=== PATIENT | male | born 1930 | race Caucasian/White ===

== ENCOUNTER 2017-12-02 18:56 | Inpatient (IN) | payer OTHER ==
[~2017-12-02] VITALS: Ht 177.8 cm; Wt 69.0 kg
--- NOTE | ~2017-12-02 | CON ---
[place], [place] REPORT OF CONSULTATION NAME: FRACISCO EPPERSON UNIT #: [id number] ROOM: 404 DOCTOR: SADIA TAMAYO MD BIRTHDATE: [birth year] DOS: 12/03/2017 REASON FOR CONSULTATION: Leg edema, atrial fibrillation. HISTORY OF PRESENT ILLNESS: The patient is an 87-year-old man who has no previous cardiac history available at [facility]. As best I can tell from the available records, the patient was diagnosed as having atrial fibrillation recently. At about the same time, he began having swelling in his legs with leakage from the skin of his legs. In addition, he developed leg weakness and trouble walking along with poor appetite. He was referred to Dr. Ballard at the [facility], but I do not believe that he has seen Dr. Ballard as of yet. He was anticoagulated by his primary physician and a workup was scheduled. He has, however, experienced multiple mechanical falls and family became concerned about his safety and welfare. They therefore brought him to the emergency room for assessment. In the emergency room, he was noted to be in atrial fibrillation with a controlled ventricular response. A chest x-ray showed normal cardiac silhouette without any pneumothorax, consolidation or vascular congestion; however, his examination did suggest congestive heart failure with neck vein distention, diminished breath sounds at the bases, and severe peripheral edema with oozing from the skin. In addition, the proBNP was elevated at 11,064. He was therefore admitted and placed on diuretics. Cardiology was asked to assess his status. The patient denies dyspnea now, but states that he is very weak. He states that he is losing his voice and has a hard time answering so many questions. PAST MEDICAL HISTORY: Includes 1. Recently documented atrial fibrillation. 2. Hyperlipidemia. 3. Inguinal hernia repair times 3. 4. Benign prostatic hypertrophy. 5. History of anemia with thrombocytopenia. REVIEW OF SYSTEMS: The patient denies diplopia or loss of vision. He has had several falls which he states are just from weakness. He denies nausea or vomiting. He denies fevers, chills or sweats. He is not sure if his weight has changed lately, but he believes he is losing weight. He denies palpitations or chest pain. He denies orthopnea or PND. He denies nausea, vomiting or hemoptysis. He denies hematemesis. He denies any blood in his urine or stools. He does note that his legs have been red and sore and that they are oozing water. They have been swollen for the last month or more. The remainder of the review of systems is negative except as noted above. MEDICATIONS: Prior to admission include apixaban 2.5 mg b.i.d., furosemide 40 mg daily, metoprolol 25 mg daily, potassium 20 mEq daily, pravastatin 40 mg at bedtime, and tamsulosin 0.4 mg daily. ALLERGIES: He has no known drug allergies. [place], [place] REPORT OF CONSULTATION NAME: FRACISCO EPPERSON UNIT #: [id number] ROOM: [facility] DOCTOR: SADIA TAMAYO MD BIRTHDATE: [birth year] FAMILY HISTORY: Positive for father dying of cancer and mother dying of old age. SOCIAL HISTORY: The patient lives with his who is also ill. He apparently does get some help from his daughter. He does not smoke, use illegal drugs or drink alcohol. PHYSICAL EXAMINATION: GENERAL: The patient is a slender, chronically ill-appearing elderly white male who is not in any acute distress. VITAL SIGNS: Pulse is 98 and irregularly irregular, blood pressure is 98/50. He has a temperature of 97.7. He weighs 69.0 kg and has a body mass index of 21.8. HEENT: Normocephalic and atraumatic. Extraocular muscles are intact. Sclerae are clear. Pupils are round and react to light. The oral mucosa is moist. Tongue is midline. NECK: Supple. He does have jugular venous distention about 5 cm above the jugular notch with hepatojugular reflux present. Carotid pulses are full and there is no carotid bruit present. He has no neck or supraclavicular masses and no thyromegaly. RESPIRATORY: Respirations are unlabored at rest. He does have diminished breath sounds at the bases, but no wheezes or rales. He has no presacral edema or chest wall tenderness. CARDIOVASCULAR: His heart has an irregularly irregular rhythm. He does have a loud third heart sound. The PMI is displaced into the anterior axillary line. No significant murmurs are present. ABDOMEN: Soft and normally active without masses, organomegaly or bruits. EXTREMITIES: Showed 3+ edema to above the knees. The skin is reddened and is oozing fluid. Peripheral pulses are not palpable bilaterally. Electrocardiogram is not available for review. LABORATORY DATA: Hemoglobin is 11.8 with hematocrit 37.7, white count 8900 and platelet count is diminished at 94,000. INR is 1.2. Sodium is 139, potassium 3.9, BUN 21, creatinine 1.19. Sugar is 84. Magnesium is slightly elevated at 2.3, total bilirubin is elevated at 1.7, AST is mildly elevated at 45. Alkaline phosphatase is slightly low. Troponin has been mildly elevated on multiple occasions in the range of 0.053-0.067. There is no characteristic rise and fall pattern in the troponin levels. TSH is mildly elevated at 6.3. The patient did have an echocardiogram today, which I have reviewed. It showed normal left ventricular internal dimensions with severe concentric left ventricular hypertrophy. The left ventricle has a ground glass pattern consistent with an infiltrative cardiomyopathy such as amyloidosis or possible hemochromatosis. Valve function appears to be preserved. Ejection fraction is 55%. Diastole could not be fully assessed, but appears to be impaired. There is marked biatrial enlargement present. A pleural effusion is also apparent even though it is not seen on the chest x-ray. [place], [place] REPORT OF CONSULTATION NAME: FRACISCO EPPERSON UNIT #: [id number] ROOM: 404 DOCTOR: SADIA TAMAYO MD BIRTHDATE: [birth year] IMPRESSION: 1. Chronic diastolic heart failure with acute exacerbation. 2. 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 3. Macrocytic anemia with thrombocytopenia. 4. Probable early cellulitis of the legs. PLAN: For now, the patient will be treated with diuretics. A cardiac MRI may be very helpful to determine the cause of his severe left ventricular hypertrophy. 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 Given his age, this would predict a very poor prognosis. We will follow the patient with his other physicians and we thank Dr. Rojas for asking our advice regarding his care. SADIA TAMAYO MD CM:CONSTR:REPORT OF CONSULTATION 50 12/03/172049 interface
--- NOTE | ~2017-12-02 | PR ---
[place], [place] PROGRESS NOTE NAME: FRACISCO EPPERSON [facility] #: [id number] UNIT #: [id number] ROOM: 404 DOCTOR: SADIA TAMAYO MD BIRTHDATE: [birth year] DOS: 12/05/2017 SUBJECTIVE: The patient was seen at his bedside today, 12/05/2017, for followup of his diastolic congestive heart failure. He is an 87-year-old man who was recently found to have atrial fibrillation. He was treated with beta blockers for rate control and Eliquis for stroke prophylaxis. Nonetheless, he developed significant fluid overload along with unsteady gait and falling. He was therefore brought to the hospital. An echocardiogram on admission shows severe concentric left ventricular hypertrophy with a ground glass appearance, consistent with cardiac amyloid. I have discussed his case with Radiology here at [facility]. Cardiac MRI is not done here. I have also discussed his case with an imaging medical office representative and a heart failure specialist. 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 There is no specific treatment for this, aside from rate control utilizing beta blockers and diuresis for heart failure. In general prognosis is poor. We could confirm the diagnosis of cardiac amyloid with an MRI, but that cannot be done at [facility]. In the long run, it may not make any difference in any case, since he would be treated the same way no matter what. PHYSICAL EXAMINATION: VITAL SIGNS: Today his pulse is 85 and irregularly irregular, blood pressure is 107/64. He is afebrile. NECK: Supple. He has jugular distention to the angle of the jaw when sitting in a 45 degree angle. Carotids are full. LUNGS: Respirations are unlabored. Chest is clear with decreased breath sounds at the bases, but no wheezes or rales. HEART: Has an irregularly irregular rhythm with a third heart sound. PMI is displaced laterally. ABDOMEN: Soft. EXTREMITIES: Wrapped with Unna boots bilaterally. LABORATORY DATA: Hemoglobin is 12.1, white count of 7500, platelet count 102,000. Sodium is 139, potassium 4.1, chloride 100, CO2 of 32, BUN 29, creatinine 1.59. IMPRESSION: 1. Chronic diastolic heart failure with acute exacerbation. 2. Recent documentation of atrial fibrillation. 3. 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 4. Early cellulitis of the legs. PLAN: As noted above, we will continue rate control with beta blockers and diuresis as tolerated by his kidneys. No specific therapy for cardiac amyloid is available at this time. Based on his age, poor clinical status and amyloidosis, I believe his long-term prognosis is very limited. I thank the hospitalist physicians for asking our advice regarding his care. [place], [place] PROGRESS NOTE NAME: FRACISCO EPPERSON Simone UNIT #: [id number] ROOM: 404 DOCTOR: SADIA TAMAYO MD BIRTHDATE: [birth year] SADIA TAMAYO MD CM:JAYE [id number] SADIA TAMAYO MD 12/05/17 172 interface
--- NOTE | ~2017-12-02 | PR ---
[place], [place] PROGRESS NOTE NAME: FRACISCO EPPERSON UNIT #: [id number] ROOM: 404 DOCTOR: BRYAN LLANES MD BIRTHDATE: [birth year] DOS: 12/06/2017 REASON FOR VISIT: CHF and atrial fibrillation. HISTORY OF PRESENT ILLNESS: The patient is feeling better, somewhat tired. Denies any chest pain or palpitation, no PND, no orthopnea, no nausea, vomiting. REVIEW OF SYSTEMS: Review of the 8 systems negative except as mentioned above. RHYTHM STRIPS: The patient was not on glass mechanic. PHYSICAL EXAMINATION: VITAL SIGNS: Blood pressure 116/83, pulse 100, respiration rate was 18, weight 69 kilos. GENERAL: Alert, comfortable, in no acute distress. HEENT: Pupils round, equal. No jaundice. NECK: Supple, no distended neck veins, no carotid bruit. CHEST: Symmetrical, nontender. LUNGS: Clear to auscultation bilaterally. HEART: Slightly irregular. Grade 1/6 systolic murmur. ABDOMEN: Benign, nontender. Bowel sounds normal. EXTREMITIES: Showed 1+ edema with mild cellulitis. SKIN: Warm and dry. NEUROLOGIC: The patient is alert, oriented. No focal neurologic deficit. RECTAL: Deferred. LABORATORY DATA: Labs reviewed. Hemoglobin 12.1, creatinine 1.4. IMPRESSION: 1. Acute and chronic diastolic heart failure, improving. 2. Paroxysmal atrial fibrillation. 3. Left ventricular hypertrophy. 4. Chronic kidney disease. 5. Cellulitis. RECOMMENDATIONS: 1. Continue current medications. 2. Continue his Eliquis anticoagulation for the paroxysmal atrial fibrillation. 3. Possible discharge today or tomorrow. 4. Continue to monitor his blood pressure and renal function. There is no family at bedside at the time of my examination. [place], [place] PROGRESS NOTE NAME: FRACISCO EPPERSON UNIT #: [id number] ROOM: 404 DOCTOR: BRYAN LLANES MD BIRTHDATE: [birth year] BRYAN LLANES MD CM:PNTRANS [id number] [phone] BRYAN LLANES MD 12/06/172199 interface
--- NOTE | ~2017-12-02 | PR ---
[place], [place] PROGRESS NOTE NAME[facility]PPERSON [facility] [id number] UNIT #: [id number] ROOM: 404 DOCTOR: SADIA TAMAYO MD BIRTHDATE: [birth year] DOS: 12/04/2017 SUBJECTIVE: The patient was seen at his bedside today on 12/04/2017 for followup of his atrial fibrillation and heart failure. I reviewed his echocardiogram last evening. It shows marked concentric left ventricular hypertrophy with a ground glass pattern. At the same time, even though his left ventricle is dramatically thickened. His QRS complexes on EKG are very small. This combination of factors is typically seen in an infiltrative cardiomyopathy and most likely indicates that the patient has amyloidosis. He denies any problems today and is anxious to go home. PHYSICAL EXAMINATION: VITAL SIGNS: His pulse is 90 and irregularly irregular, blood pressure is 137/82, he is afebrile. He weighs 69.0 kg and has a body mass index of 21.8. HEENT: Normocephalic and atraumatic. Extraocular muscles are intact. Sclerae are clear. Pupils equal, round and react to light. Oral mucosa is moist. Tongue is midline. NECK: Supple. He does have jugular distention to the angle of the jaw when sitting upright. Carotids are full. LUNGS: Respirations are unlabored. He has decreased breath sounds at the bases, but no wheezes or rales. He has no dullness or presacral edema. HEART: Has an irregularly irregular rhythm. He has a third heart sound. The PMI is displaced somewhat laterally. ABDOMEN: Benign. EXTREMITIES: Wrapped with Unna boots. LABORATORY DATA: Iron, TIBC and ferritin levels are normal essentially ruling out iron storage diseases. Clinically, it is most likely that the patient therefore has amyloidosis. IMPRESSION: 1. Chronic diastolic heart failure with acute exacerbation. 2. Atrial fibrillation, documented recently. 3. 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 4. Macrocytic anemia with thrombocytopenia. 5. Early cellulitis of the legs. I discussed the patient's care briefly with an imaging human capital analyst. We could probably confirm the diagnosis with an MRI. Other diagnostic studies such as biopsy would be much more invasive. On the other hand, I do not know that there is much we would have to offer him therapeutically even if we do confirm the diagnosis. I will discuss his case with our heart failure specialist, but I think that conservative care may be all we have to offer. For now, I would continue him on enough beta haven to control his rate and we will use diuretics as needed. I thank the hospitalist physicians for asking our advice regarding his care. [place], [place] PROGRESS NOTE NAME: FRACISCO EPPERSON UNIT #: [id number] ROOM: 404 DOCTOR: SADIA TAMAYO MD BIRTHDATE: [birth year] SADIA TAMAYO MD CM:PNTRANS [id number] SADIA TAMAYO MD 12/04/17 1215 interface
[2017-12-02 19:07] VITALS: BP 121/75
[2017-12-02] MEDS ORDERED: FUROSEMIDE40 MG PO (19:14)
[2017-12-02] MEDS ORDERED: ELIQUIS2.5 M1 PO (19:14)
[2017-12-02] MEDS ORDERED: METOPROLOL SUCC25 M2 PO (19:15)
[2017-12-02] MEDS ORDERED: POTASSIUM CHLO20 MEQ PO (19:16)
[2017-12-02] MEDS ORDERED: TAMSULOSIN HCL0.4 MG PO (19:19)
[2017-12-02] MEDS ORDERED: PRAVACHOL40 MG PO (19:19)
[2017-12-02 20:02] LABS: HEMATOCRIT 39.2 % (42.0-52.0); HEMOGLOBIN 12.1 g/dl (14.0-18.0); MEAN CELL VOLUME 96.6 fl (80.0-94.0); MEAN CORPUSCULAR HGB 29.8 pg (27.0-31.0); MEAN CORPUSCULAR HGB CONC 30.9 g/dl (33.0-37.0); PLATELET COUNT AUTOMATED 101 10*3/uL (130-400); RED BLOOD COUNT 4.06 10*6/uL (4.50-5.90); RED CELL DISTRI WIDTH 13.4 % (0-14.5); WHITE BLOOD COUNT 8.3 10*3/uL (4.8-10.8)
[2017-12-02 20:14] LABS: ACT PARTIAL THROMBO TIME 27.2 SECONDS (20.8-31.5); INTERNATIONAL NORM RATIO 1.2 (2.0-3.5)
[2017-12-02 20:19] LABS: ALBUMIN 3.4 gm/dl (3.1-4.5); ALKALINE PHOSPHATASE 42 U/L (45-117); BUN 21 mg/dl (7-24); CHLORIDE 99 mmol/L (98-107); CREATININE 1.15 mg/dL (0.70-1.30); POTASSIUM 4.2 mmol/L (3.5-5.1); SGOT/AST 51 IU/L (3-35); SGPT/ALT 36 U/L (12-78); SODIUM 139 mmol/L (136-145); TOTAL PROTEIN 7.5 gm/dL (6.4-8.2)
[2017-12-02 20:22] LABS: ATYPICAL LYMPHS 1 % (0-0); BASOPHILS 1 % (0-1); PLATELET SUFFICIENCY LOW (NORMAL); TOTAL CELLS COUNTED 100 #CELLS; TROPONIN I 0.057 ng/ml (<0.045)
[2017-12-02 21:57] VITALS: BP 106/77
[2017-12-03] VITALS: BP 104/65
[2017-12-03 04:26] LABS: HEMATOCRIT 37.7 % (42.0-52.0); HEMOGLOBIN 11.8 g/dl (14.0-18.0); MEAN CELL VOLUME 96.2 fl (80.0-94.0); MEAN CORPUSCULAR HGB 30.1 pg (27.0-31.0); MEAN CORPUSCULAR HGB CONC 31.3 g/dl (33.0-37.0); MEAN PLATELET VOLUME 13.2 fl (9.6-12.3); PLATELET COUNT AUTOMATED 94 10*3/uL (130-400); RED BLOOD COUNT 3.92 10*6/uL (4.50-5.90); RED CELL DISTRI WIDTH 13.3 % (0-14.5); WHITE BLOOD COUNT 8.9 10*3/uL (4.8-10.8)
[2017-12-03 04:37] LABS: ACT PARTIAL THROMBO TIME 27.9 SECONDS (20.8-31.5); INTERNATIONAL NORM RATIO 1.2 (2.0-3.5)
[2017-12-03 04:56] LABS: ALBUMIN 3.1 gm/dl (3.1-4.5); ALKALINE PHOSPHATASE 38 U/L (45-117); BUN 21 mg/dl (7-24); CHLORIDE 99 mmol/L (98-107); CHOLESTEROL 78 mg/dL (<200); CREATININE 1.19 mg/dL (0.70-1.30); HDL CHOLESTEROL 38 mg/dl (40-60); LDL CHOLESTEROL 25 mg/dL (9-159); PHOSPHOROUS 3.6 mg/dL (2.5-4.9); POTASSIUM 3.9 mmol/L (3.5-5.1); SGOT/AST 45 IU/L (3-35); SGPT/ALT 28 U/L (12-78); SODIUM 139 mmol/L (136-145); TOTAL PROTEIN 6.6 gm/dL (6.4-8.2); TRIGLYCERIDES 73 mg/dl (<150); VLDL CHOLESTEROL 15 mg/dL (6-40)
[2017-12-03 05:04] LABS: PLATELET SUFFICIENCY LOW (NORMAL); TOTAL CELLS COUNTED 100 #CELLS
[2017-12-03 08:00] VITALS: BP 131/92
[2017-12-03 09:48] LABS: VITAMIN D, 25-HYDROXY 14.1 ng/mL (30-100)
[2017-12-03 12:00] VITALS: BP 110/84
[2017-12-03 16:00] VITALS: BP 98/50
[2017-12-03 20:00] VITALS: BP 130/84
[2017-12-04] VITALS: BP 115/67
[2017-12-04 07:05] LABS: HEMATOCRIT 39.3 % (42.0-52.0); HEMOGLOBIN 12.1 g/dl (14.0-18.0); MEAN CELL VOLUME 95.9 fl (80.0-94.0); MEAN CORPUSCULAR HGB 29.5 pg (27.0-31.0); MEAN CORPUSCULAR HGB CONC 30.8 g/dl (33.0-37.0); MEAN PLATELET VOLUME 13.6 fl (9.6-12.3); PLATELET COUNT AUTOMATED 102 10*3/uL (130-400); RED CELL DISTRI WIDTH 13.2 % (0-14.5); WHITE BLOOD COUNT 7.5 10*3/uL (4.8-10.8)
[2017-12-04 07:15] LABS: BUN 25 mg/dl (7-24); CHLORIDE 98 mmol/L (98-107); CREATININE 1.32 mg/dL (0.70-1.30); IRON 50 ug/dL (65-175); POTASSIUM 3.3 mmol/L (3.5-5.1); SODIUM 139 mmol/L (136-145); TOTAL IRON BINDING CAPACITY 231 ug/dl (250-450)
[2017-12-04 07:23] LABS: TOTAL CELLS COUNTED 100 #CELLS
[2017-12-04 07:24] LABS: PLATELET SUFFICIENCY LOW (NORMAL)
[2017-12-04 08:00] VITALS: BP 137/82
[2017-12-04 12:00] VITALS: BP 145/76
[2017-12-04 16:00] VITALS: BP 102/48
[2017-12-04 20:00] VITALS: BP 111/60
[2017-12-05] VITALS: BP 141/63
[2017-12-05 06:07] LABS: CREATININE 1.59 mg/dL (0.70-1.30); POTASSIUM 4.1 mmol/L (3.5-5.1)
[2017-12-05 08:00] VITALS: BP 138/80
[2017-12-05 12:00] VITALS: BP 107/75
[2017-12-05 16:00] VITALS: BP 107/64
[2017-12-05 20:00] VITALS: BP 108/76
[2017-12-06] VITALS: BP 104/79
[2017-12-06 06:47] LABS: CREATININE 1.42 mg/dL (0.70-1.30); POTASSIUM 3.7 mmol/L (3.5-5.1)
[2017-12-06 08:00] VITALS: BP 109/69
[2017-12-06 12:00] VITALS: BP 116/83; BP 128/89
[2017-12-06 16:00] VITALS: BP 117/65
[2017-12-06] MEDS ORDERED: DOXYCYCLINE100 MG PO (16:05)
[2017-12-06] MEDS ORDERED: TORSEMIDE20 MG PO (16:05)
[2017-12-06] MEDS ORDERED: TOPROL XL50 M1 PO (16:05)
== END 2017-12-06 17:50 | disposition home health service (06) | DRG 545 ==
LOC: ED 18:56 → EDHOLD 20:40 → 4E 20:40
PROVIDERS: Internal Medicine; Student in an Organized Health Care Education/Training Program
DX: E85.4 Organ-limited amyloidosis (principal); I50.33 Acute on chronic diastolic (congestive) heart failure; N17.0 Acute kidney failure with tubular necrosis; D68.9 Coagulation defect, unspecified; D69.6 Thrombocytopenia, unspecified; E44.1 Mild protein-calorie malnutrition; L03.115 Cellulitis of right lower limb; R17 Unspecified jaundice; L03.116 Cellulitis of left lower limb; I43 Cardiomyopathy in diseases classified elsewhere; R29.6 Repeated falls; R74.8 Abnormal levels of other serum enzymes; R74.0 Nonspecific elevation of levels of transaminase and lactic acid dehydrogenase [LDH]; E78.5 Hyperlipidemia, unspecified; D46.Z Other myelodysplastic syndromes; S60.511A Abrasion of right hand, initial encounter; S40.212A Abrasion of left shoulder, initial encounter; I48.0 Paroxysmal atrial fibrillation; N40.0 Benign prostatic hyperplasia without lower urinary tract symptoms; N18.9 Chronic kidney disease, unspecified; E87.6 Hypokalemia; D72.821 Monocytosis (symptomatic); I87.8 Other specified disorders of veins; W19.XXXA Unspecified fall, initial encounter; Y93.89 Activity, other specified; Y92.89 Other specified places as the place of occurrence of the external cause; Y99.8 Other external cause status; Z80.9 Family history of malignant neoplasm, unspecified; Z79.899 Other long term (current) drug therapy; Z68.21 Body mass index [BMI] 21.0-21.9, adult

== ENCOUNTER 2018-01-01 21:55 | Inpatient (IN) | payer OTHER ==
[~2018-01-01] VITALS: Ht 177.8 cm; Wt 64.5 kg
[~2018-01-01 21:55] MED LIST: DOXYCYCLINE100 MG PO; ELIQUIS2.5 M1 PO; FUROSEMIDE40 MG PO; METOPROLOL SUCC25 M2 PO; POTASSIUM CHLO20 MEQ PO; PRAVACHOL40 MG PO; TAMSULOSIN HCL0.4 MG PO; TOPROL XL50 M1 PO; TORSEMIDE20 MG PO
[2018-01-01 21:56] VITALS: BP 102/61
[2018-01-01] MEDS ORDERED: METOPROLOL SUCC50 M1 PO (22:32)
[2018-01-01 22:33] LABS: HEMATOCRIT 35.1 % (42.0-52.0); HEMOGLOBIN 10.9 g/dl (14.0-18.0); MEAN CELL VOLUME 97.2 fl (80.0-94.0); MEAN CORPUSCULAR HGB 30.2 pg (27.0-31.0); MEAN CORPUSCULAR HGB CONC 31.1 g/dl (33.0-37.0); MEAN PLATELET VOLUME 13.9 fl (9.6-12.3); PLATELET COUNT AUTOMATED 92 10*3/uL (130-400); RED BLOOD COUNT 3.61 10*6/uL (4.50-5.90); RED CELL DISTRI WIDTH 14.6 % (0-14.5); WHITE BLOOD COUNT 12.4 10*3/uL (4.8-10.8)
[2018-01-01] MEDS ORDERED: SYNTHROID25 MCG PO (22:34)
[2018-01-01 22:41] LABS: INTERNATIONAL NORM RATIO 1.3 (2.0-3.5)
[2018-01-01 22:51] LABS: ALBUMIN 3.1 gm/dl (3.1-4.5); ALKALINE PHOSPHATASE 37 U/L (45-117); BUN 24 mg/dl (7-24); CHLORIDE 101 mmol/L (98-107); CREATININE 1.21 mg/dL (0.70-1.30); POTASSIUM 4.2 mmol/L (3.5-5.1); SGOT/AST 54 IU/L (3-35); SGPT/ALT 29 U/L (12-78); SODIUM 139 mmol/L (136-145); TOTAL PROTEIN 6.9 gm/dL (6.4-8.2)
[2018-01-01 22:58] LABS: BILIRUBIN NEGATIVE (NEGATIVE); BLOOD NEGATIVE (NEGATIVE); CLARITY CLEAR (CLEAR); COLOR YELLOW (YELLOW); GLUCOSE NEGATIVE (NEGATIVE); KETONE NEGATIVE (NEGATIVE); LEUKO ESTERASE 1+ (NEGATIVE); NITRITE NEGATIVE (NEGATIVE)
[2018-01-01 22:59] LABS: PLATELET SUFFICIENCY LOW (NORMAL); TOTAL CELLS COUNTED 100 #CELLS
[2018-01-01 23:02] LABS: TROPONIN I 0.066 ng/ml (<0.045)
[2018-01-01 23:06] VITALS: BP 105/70
[2018-01-01 23:10] LABS: BACTERIA TRACE; EPITHELIAL CELLS 0-2
[2018-01-01 23:44] VITALS: BP 106/42
[2018-01-02 00:33] VITALS: BP 101/59
[2018-01-02 01:45] VITALS: BP 97/54
[2018-01-02 01:52] LABS: CKMB 5.7 ng/ml (0.5-3.6); TROPONIN I 0.122 ng/ml (<0.045)
[2018-01-02] MEDS ORDERED: FINASTERIDE5 M1 PO (02:20)
[2018-01-02 05:23] LABS: CKMB 5.5 ng/ml (0.5-3.6); TROPONIN I 0.149 ng/ml (<0.045)
[2018-01-02 05:30] LABS: BUN 24 mg/dl (7-24); CREATININE 1.06 mg/dL (0.70-1.30); SGOT/AST 57 IU/L (3-35); SGPT/ALT 28 U/L (12-78)
[2018-01-02 05:48] LABS: ALBUMIN 3.1 gm/dl (3.1-4.5); CHLORIDE 103 mmol/L (98-107); PHOSPHOROUS 3.4 mg/dL (2.5-4.9); POTASSIUM 3.8 mmol/L (3.5-5.1); SODIUM 141 mmol/L (136-145); TOTAL PROTEIN 6.7 gm/dL (6.4-8.2)
[2018-01-02 05:51] LABS: FREE T4 1.03 ng/dl (0.76-1.46)
[2018-01-02 06:03] LABS: ALKALINE PHOSPHATASE 37 U/L (45-117)
[2018-01-02 06:14] LABS: HEMATOCRIT 35.2 % (42.0-52.0); HEMOGLOBIN 10.7 g/dl (14.0-18.0); MEAN CELL VOLUME 98.1 fl (80.0-94.0); MEAN CORPUSCULAR HGB 29.8 pg (27.0-31.0); MEAN CORPUSCULAR HGB CONC 30.4 g/dl (33.0-37.0); PLATELET COUNT AUTOMATED 93 10*3/uL (130-400); RED BLOOD COUNT 3.59 10*6/uL (4.50-5.90); RED CELL DISTRI WIDTH 14.6 % (0-14.5); WHITE BLOOD COUNT 8.7 10*3/uL (4.8-10.8)
[2018-01-02 07:44] LABS: BASOPHILS 2 % (0-1); PLATELET SUFFICIENCY LOW (NORMAL); TOTAL CELLS COUNTED 100 #CELLS
[2018-01-02 08:00] VITALS: BP 101/63
[2018-01-02 08:03] LABS: VITAMIN D, 25-HYDROXY 15.2 ng/mL (30-100)
[2018-01-02 12:00] VITALS: BP 101/63
[2018-01-02 16:00] VITALS: BP 105/70
[2018-01-02 20:00] VITALS: BP 106/67
[2018-01-03] VITALS: BP 102/71
[2018-01-03 01:00] VITALS: BP 102/71
[2018-01-03 08:00] VITALS: BP 122/88
[2018-01-03 12:00] VITALS: BP 115/80
[2018-01-03 16:00] VITALS: BP 141/82
[2018-01-03 17:06] LABS: POTASSIUM 4.2 mmol/L (3.5-5.1)
[2018-01-03 20:00] VITALS: BP 122/62
[2018-01-04] VITALS: BP 127/71
[2018-01-04 06:00] LABS: BUN 21 mg/dl (7-24); CHLORIDE 105 mmol/L (98-107); CKMB 4.2 ng/ml (0.5-3.6); CPK 237 U/L (39-308); CREATININE 0.89 mg/dL (0.70-1.30); SODIUM 139 mmol/L (136-145)
[2018-01-04 06:04] LABS: BASO # 0.1 10*3/uL (0.0-0.1); BASO % 0.9 % (0.0-1.0); EOS # 0.1 10*3/uL (0.0-0.4); EOS % 1.4 % (1.0-4.0); HEMATOCRIT 36.6 % (42.0-52.0); HEMOGLOBIN 11.2 g/dl (14.0-18.0); LYMPH # 1.2 10*3/uL (1.3-4.4); LYMPH % 16.8 % (27.0-41.0); MEAN CELL VOLUME 97.1 fl (80.0-94.0); MEAN CORPUSCULAR HGB 29.7 pg (27.0-31.0); MEAN CORPUSCULAR HGB CONC 30.6 g/dl (33.0-37.0); MEAN PLATELET VOLUME 13.8 fl (9.6-12.3); MONO # 1.2 10*3/uL (0.1-1.0); MONO % 17.2 % (3.0-9.0); NEUT # 4.4 10*3/uL (2.3-7.9); PLATELET COUNT AUTOMATED 99 10*3/uL (130-400); RED BLOOD COUNT 3.77 10*6/uL (4.50-5.90); RED CELL DISTRI WIDTH 14.6 % (0-14.5); WHITE BLOOD COUNT 6.9 10*3/uL (4.8-10.8)
[2018-01-04 06:06] LABS: TROPONIN I 0.083 ng/ml (<0.045)
[2018-01-04 08:00] VITALS: BP 144/89
[2018-01-04 12:00] VITALS: BP 117/79
[2018-01-04 16:06] VITALS: BP 114/69
[2018-01-04 20:00] VITALS: BP 132/88
[2018-01-05] VITALS: BP 128/77
[2018-01-05 08:00] VITALS: BP 135/92
[2018-01-05 12:00] VITALS: BP 112/80
[2018-01-05 16:00] VITALS: BP 132/81
[2018-01-05 20:00] VITALS: BP 126/84
[2018-01-06] VITALS: BP 132/70
[2018-01-06 08:00] VITALS: BP 136/80
[2018-01-06 12:00] VITALS: BP 96/61
[2018-01-06 16:00] VITALS: BP 115/75
[2018-01-06 20:00] VITALS: BP 109/73
[2018-01-07] VITALS: BP 105/63
[2018-01-07 08:00] VITALS: BP 145/87
[2018-01-07 12:00] VITALS: BP 117/65
[2018-01-07 16:00] VITALS: BP 116/69
[2018-01-07 20:00] VITALS: BP 96/55
[2018-01-08] VITALS: BP 107/65
[2018-01-08 08:00] VITALS: BP 108/77
[2018-01-08] MEDS ORDERED: AMINOPHYLLIN200 MG PO (11:51)
[2018-01-08 12:00] VITALS: BP 107/58
== END 2018-01-08 13:14 | disposition other institution (70) | DRG 558 ==
LOC: ED 21:55 → EDHOLD 01-02 00:45 → 5E 01-02 00:45
PROVIDERS: Emergency Medicine Emergency Medical Services; Internal Medicine; Internal Medicine Hospice and Palliative Medicine; Surgery
DX: M62.82 Rhabdomyolysis (principal); L89.151 Pressure ulcer of sacral region, stage 1; E87.3 Alkalosis; D68.59 Other primary thrombophilia; I11.0 Hypertensive heart disease with heart failure; D69.6 Thrombocytopenia, unspecified; E44.1 Mild protein-calorie malnutrition; I50.32 Chronic diastolic (congestive) heart failure; I42.9 Cardiomyopathy, unspecified; N39.0 Urinary tract infection, site not specified; D72.810 Lymphocytopenia; E80.6 Other disorders of bilirubin metabolism; R73.9 Hyperglycemia, unspecified; N40.1 Benign prostatic hyperplasia with lower urinary tract symptoms; E78.5 Hyperlipidemia, unspecified; E03.9 Hypothyroidism, unspecified; D53.9 Nutritional anemia, unspecified; I48.2 Chronic atrial fibrillation; W18.39XA Other fall on same level, initial encounter; Y93.89 Activity, other specified; Y92.098 Other place in other non-institutional residence as the place of occurrence of the external cause; Y99.8 Other external cause status; Z79.01 Long term (current) use of anticoagulants; Z79.899 Other long term (current) drug therapy; Z80.9 Family history of malignant neoplasm, unspecified; Z68.20 Body mass index [BMI] 20.0-20.9, adult

== ENCOUNTER → 2018-04-16 | Outpatient (CLI) | payer OTHER ==
[~2018-04-16] MED LIST changes: +AMINOPHYLLIN200 MG PO; +AMOXICILLIN500 M2 PO; +Bactroban Oint22 GM T; +CEPHALEXIN500 M1 PO; +DOXYCYCLINE100 M3 PO; +FINASTERIDE5 M1 PO; +LEVOTHYROXINE50 MCG PO; +METOPROLOL SUCC50 M1 PO; +SEPTDS PO; +SYNTHROID25 MCG PO; +Septra SS 400 MG-80 PO
== END | disposition home or self-care (01) ==
LOC: RAD 04-09 13:30 → US 04-09 13:30
DX: M54.2 Cervicalgia (principal); R60.9 Edema, unspecified; M79.89 Other specified soft tissue disorders; L53.9 Erythematous condition, unspecified; M79.605 Pain in left leg

== ENCOUNTER 2018-05-09 19:18 | Inpatient (IN) | payer OTHER ==
[~2018-05-09] VITALS: Ht 179.1 cm; Wt 64.6 kg
--- NOTE | ~2018-05-09 | EKG ---
[place], [place] ELECTROCARDIOGRAM REPORT NAME: FRACISCO EPPERSON UNIT #: [id number] ROOM: 408 DOCTOR: JUAN MIGUEL DRAFT REPORT BIRTHDATE: [birth year] [facility] Test Date: 2018-05-09 Test Time: 19:59:35 Pat Name: FRACISCO EPPERSON Department: Room: 408 Gender: M Physical Therapy Coordinator: GERSON : 1930 Requested By: LIZZ MONTALVO PA-C Order Number: [id number] Reading MD: Nallely Croft MD Measurements Intervals [place] Rate: 84 P: MI: QRS: 174 QRSD: 104 T: 66 QT: 433 QTc: 512 Interpretive Statements Atrial fibrillation Probable lateral infarct, age indeterminate Probable anteroseptal infarct, old Prolonged QT interval Artifact in lead(s) I,II,III,aVR,aVL,aVF,V1,V2,V3,V4,V5,V6 Electronically Signed On 05-10-2018 12:26:54 PDT by Nallely Croft MD CM:EKGRPT:ELECTROCARDIOGRAM REPORT [id number] LIZZ MONTALVO PA-C EPIPHANY DRAFT REPORT LIZZ MONTALVO PA-C
[~2018-05-09 19:18] MED LIST changes: -AMOXICILLIN500 M2 PO; -Bactroban Oint22 GM T; -CEPHALEXIN500 M1 PO; -DOXYCYCLINE100 M3 PO; -LEVOTHYROXINE50 MCG PO; -SEPTDS PO; -Septra SS 400 MG-80 PO
[2018-05-09 19:22] VITALS: BP 118/70
[2018-05-09 19:46] LABS: BASO % 0.7 % (0.0-1.0); EOS # 0.1 10*3/uL (0.0-0.4); EOS % 1.6 % (1.0-4.0); HEMATOCRIT 51.5 % (42.0-52.0); HEMOGLOBIN 16.4 g/dl (14.0-18.0); LYMPH # 0.5 10*3/uL (1.3-4.4); LYMPH % 11.4 % (27.0-41.0); MEAN CELL VOLUME 95.9 fl (80.0-94.0); MEAN CORPUSCULAR HGB 30.5 pg (27.0-31.0); MEAN CORPUSCULAR HGB CONC 31.8 g/dl (33.0-37.0); MEAN PLATELET VOLUME 12.5 fl (9.6-12.3); MONO # 0.8 10*3/uL (0.1-1.0); MONO % 18.4 % (3.0-9.0); NEUT # 2.9 10*3/uL (2.3-7.9); NEUT % 67.4 % (47.0-73.0); PLATELET COUNT AUTOMATED 80 10*3/uL (130-400); RED BLOOD COUNT 5.37 10*6/uL (4.50-5.90); RED CELL DISTRI WIDTH 14.5 % (0-14.5); WHITE BLOOD COUNT 4.3 10*3/uL (4.8-10.8)
[2018-05-09 19:55] LABS: INTERNATIONAL NORM RATIO 1.3 (2.0-3.5)
[2018-05-09 20:00] VITALS: BP 110/68
[2018-05-09] MEDS ORDERED: SEPTDS PO (20:01)
[2018-05-09] MEDS ORDERED: LEVOTHYROXINE50 MCG PO (20:02)
[2018-05-09 20:04] LABS: ALBUMIN 3.2 gm/dl (3.1-4.5); CREATININE 1.38 mg/dL (0.70-1.30); POTASSIUM 4.4 mmol/L (3.5-5.1); TOTAL PROTEIN 7.7 gm/dL (6.4-8.2)
[2018-05-09 20:11] LABS: TROPONIN I 0.06 ng/ml (<0.045)
[2018-05-09 21:00] VITALS: BP 107/55
[2018-05-09 22:30] VITALS: BP 108/56
[2018-05-09 23:13] LABS: CKMB 11.4 ng/ml (0.5-3.6)
[2018-05-09 23:30] VITALS: BP 131/72
[2018-05-10 00:59] LABS: BILIRUBIN NEGATIVE (NEGATIVE); BLOOD NEGATIVE (NEGATIVE); CLARITY CLEAR (CLEAR); COLOR YELLOW (YELLOW); GLUCOSE NEGATIVE (NEGATIVE); KETONE NEGATIVE (NEGATIVE); LEUKO ESTERASE NEGATIVE (NEGATIVE); NITRITE NEGATIVE (NEGATIVE); PH 6.5 (5.0-9.0); SPECIFIC GRAVITY 1.005 (1.005-1.030); UROBILINOGEN 0.2 E.U./dl (0.2-1.0)
[2018-05-10 01:06] LABS: EPITHELIAL CELLS 0-5; WBC 0-2 wbc/hpf (0-5)
[2018-05-10 03:16] LABS: MEAN CELL VOLUME 96.7 fl (80.0-94.0); MEAN CORPUSCULAR HGB 31.4 pg (27.0-31.0); MEAN CORPUSCULAR HGB CONC 32.5 g/dl (33.0-37.0); MEAN PLATELET VOLUME 11.6 fl (9.6-12.3); RED BLOOD COUNT 2.99 10*6/uL (4.50-5.90); RED CELL DISTRI WIDTH 14.4 % (0-14.5)
[2018-05-10 03:23] LABS: HEMATOCRIT 28.9 % (42.0-52.0); HEMOGLOBIN 9.4 g/dl (14.0-18.0); PLATELET COUNT AUTOMATED 130 10*3/uL (130-400)
[2018-05-10 03:29] LABS: ACT PARTIAL THROMBO TIME 27.4 SECONDS (20.8-31.5); INTERNATIONAL NORM RATIO 1.3 (2.0-3.5)
[2018-05-10 03:34] LABS: ALBUMIN 2.8 gm/dl (3.1-4.5); ALKALINE PHOSPHATASE 35 U/L (45-117); BUN 31 mg/dl (7-24); CHLORIDE 101 mmol/L (98-107); FREE T4 1.05 ng/dl (0.76-1.46); PHOSPHOROUS 3.8 mg/dL (2.5-4.9); POTASSIUM 4.4 mmol/L (3.5-5.1); SGOT/AST 78 IU/L (3-35); SGPT/ALT 31 U/L (12-78); SODIUM 140 mmol/L (136-145); TOTAL PROTEIN 6.8 gm/dL (6.4-8.2)
[2018-05-10 03:47] LABS: CKMB 15.5 ng/ml (0.5-3.6)
[2018-05-10 03:53] LABS: BASOPHILS 1 % (0-1); PLATELET SUFFICIENCY LOW (NORMAL); TOTAL CELLS COUNTED 100 #CELLS
[2018-05-10 03:54] LABS: MICROCYTOSIS SLIGHT
[2018-05-10 08:21] LABS: HEMATOCRIT 30.7 % (42.0-52.0); HEMOGLOBIN 9.8 g/dl (14.0-18.0); MEAN CELL VOLUME 97.2 fl (80.0-94.0); MEAN CORPUSCULAR HGB CONC 31.9 g/dl (33.0-37.0); MEAN PLATELET VOLUME 12.3 fl (9.6-12.3); PLATELET COUNT AUTOMATED 146 10*3/uL (130-400); RED BLOOD COUNT 3.16 10*6/uL (4.50-5.90); RED CELL DISTRI WIDTH 14.4 % (0-14.5); WHITE BLOOD COUNT 8.4 10*3/uL (4.8-10.8)
[2018-05-10 08:39] LABS: PLATELET SUFFICIENCY NORMAL (NORMAL); POLYCHROMASIA SLIGHT; TOTAL CELLS COUNTED 100 #CELLS
[2018-05-10 12:00] VITALS: BP 94/59
[2018-05-10 16:00] VITALS: BP 119/70
[2018-05-10 20:00] VITALS: BP 96/51
[2018-05-11] VITALS: BP 94/54
[2018-05-11 12:00] VITALS: BP 112/64
[2018-05-11 16:00] VITALS: BP 124/65
[2018-05-11 20:00] VITALS: BP 103/41
[2018-05-12] VITALS: BP 124/69
[2018-05-12 07:32] LABS: BUN 25 mg/dl (7-24); CREATININE 1.07 mg/dL (0.70-1.30)
[2018-05-12 08:00] VITALS: BP 123/88
[2018-05-12 12:00] VITALS: BP 120/66
[2018-05-12 16:00] VITALS: BP 119/68
[2018-05-12 20:00] VITALS: BP 135/73
[2018-05-13] VITALS: BP 106/56
[2018-05-13 08:00] VITALS: BP 117/62
[2018-05-13 12:00] VITALS: BP 121/73
[2018-05-13 16:00] VITALS: BP 118/54
[2018-05-13 20:00] VITALS: BP 128/54
[2018-05-14] VITALS: BP 112/56
[2018-05-14 06:49] LABS: HEMATOCRIT 29.2 % (42.0-52.0); HEMOGLOBIN 8.9 g/dl (14.0-18.0); MEAN CELL VOLUME 99.7 fl (80.0-94.0); MEAN CORPUSCULAR HGB 30.4 pg (27.0-31.0); MEAN CORPUSCULAR HGB CONC 30.5 g/dl (33.0-37.0); MEAN PLATELET VOLUME 11.6 fl (9.6-12.3); PLATELET COUNT AUTOMATED 206 10*3/uL (130-400); RED BLOOD COUNT 2.93 10*6/uL (4.50-5.90); RED CELL DISTRI WIDTH 14.8 % (0-14.5); WHITE BLOOD COUNT 10.7 10*3/uL (4.8-10.8)
[2018-05-14 07:00] LABS: ALBUMIN 2.4 gm/dl (3.1-4.5); CHLORIDE 107 mmol/L (98-107); SODIUM 140 mmol/L (136-145)
[2018-05-14 07:05] LABS: ALKALINE PHOSPHATASE 37 U/L (45-117); CREATININE 0.89 mg/dL (0.70-1.30); SGOT/AST 61 IU/L (3-35); SGPT/ALT 35 U/L (12-78); TOTAL PROTEIN 6.5 gm/dL (6.4-8.2)
[2018-05-14 07:15] LABS: BUN 15 mg/dl (7-24)
[2018-05-14 07:34] LABS: BASOPHILS 1 % (0-1); PLATELET SUFFICIENCY NORMAL (NORMAL); POLYCHROMASIA SLIGHT; TOTAL CELLS COUNTED 100 #CELLS
[2018-05-14 08:00] VITALS: BP 113/69
[2018-05-14 12:00] VITALS: BP 108/67
[2018-05-14] MEDS ORDERED: CEPHALEXIN500 M1 PO (14:46)
[2018-05-14] MEDS ORDERED: DOXYCYCLINE100 M3 PO (15:23)
[2018-05-14 16:00] VITALS: BP 136/63
[2018-05-14 20:00] VITALS: BP 121/54
[2018-05-15 01:56] VITALS: BP 125/61
[2018-05-15 06:58] LABS: HEMATOCRIT 28.7 % (42.0-52.0); HEMOGLOBIN 8.8 g/dl (14.0-18.0); MEAN CORPUSCULAR HGB 30.3 pg (27.0-31.0); MEAN CORPUSCULAR HGB CONC 30.7 g/dl (33.0-37.0); MEAN PLATELET VOLUME 11.4 fl (9.6-12.3); PLATELET COUNT AUTOMATED 231 10*3/uL (130-400); WHITE BLOOD COUNT 9.9 10*3/uL (4.8-10.8)
[2018-05-15 07:03] LABS: BUN 15 mg/dl (7-24); CHLORIDE 106 mmol/L (98-107); CREATININE 0.81 mg/dL (0.70-1.30); POTASSIUM 4.1 mmol/L (3.5-5.1); SODIUM 140 mmol/L (136-145)
[2018-05-15 07:40] LABS: BASOPHILS 1 % (0-1); PLATELET SUFFICIENCY NORMAL (NORMAL); POLYCHROMASIA SLIGHT; TOTAL CELLS COUNTED 100 #CELLS
[2018-05-15 08:00] VITALS: BP 118/62
[2018-05-15] MEDS ORDERED: Septra SS 400 MG-80 PO ×3 (09:09→09:27)
[2018-05-15] MEDS ORDERED: AMOXICILLIN500 M2 PO (09:25)
[2018-05-15] MEDS ORDERED: Bactroban Oint22 GM T (10:59)
== END 2018-05-15 11:57 | disposition other institution (70) | DRG 564 ==
LOC: ED 19:18 → 4E 22:04 → EDHOLD 22:04 → 4E 22:26
PROVIDERS: Family Medicine; Internal Medicine; Physician Assistant; Registered Nurse
DX: T79.6XXA Traumatic ischemia of muscle, initial encounter (principal); G93.41 Metabolic encephalopathy; N17.0 Acute kidney failure with tubular necrosis; E87.1 Hypo-osmolality and hyponatremia; E44.0 Moderate protein-calorie malnutrition; I50.32 Chronic diastolic (congestive) heart failure; D68.59 Other primary thrombophilia; L03.116 Cellulitis of left lower limb; L03.115 Cellulitis of right lower limb; R29.6 Repeated falls; L89.151 Pressure ulcer of sacral region, stage 1; L89.110 Pressure ulcer of right upper back, unstageable; I48.91 Unspecified atrial fibrillation; N40.0 Benign prostatic hyperplasia without lower urinary tract symptoms; E78.5 Hyperlipidemia, unspecified; D69.6 Thrombocytopenia, unspecified; E87.8 Other disorders of electrolyte and fluid balance, not elsewhere classified; R73.9 Hyperglycemia, unspecified; I87.2 Venous insufficiency (chronic) (peripheral); I11.0 Hypertensive heart disease with heart failure; E55.9 Vitamin D deficiency, unspecified; E03.9 Hypothyroidism, unspecified; W18.30XA Fall on same level, unspecified, initial encounter; Y93.89 Activity, other specified; Y92.009 Unspecified place in unspecified non-institutional (private) residence as the place of occurrence of the external cause; Y99.8 Other external cause status; Z79.01 Long term (current) use of anticoagulants; Z79.899 Other long term (current) drug therapy; Z80.8 Family history of malignant neoplasm of other organs or systems